=== PATIENT | male | born 1990 | race Caucasian/White ===

== ENCOUNTER 2023-05-01 18:02 | Emergency (ER) | payer OTHER ==
[~2023-05-01] VITALS: Ht 175.3 cm; Wt 83.9 kg
== END 2023-05-01 20:44 | disposition home or self-care (01) ==
LOC: ER 18:02
DX: S63.591A Other specified sprain of right wrist, initial encounter (principal); X50.9XXA Other and unspecified overexertion or strenuous movements or postures, initial encounter; Y93.89 Activity, other specified; Y92.89 Other specified places as the place of occurrence of the external cause; Z88.8 Allergy status to other drugs, medicaments and biological substances

== ENCOUNTER 2023-10-01 22:44 | Emergency (ER) | payer OTHER ==
[~2023-10-01] VITALS: Ht 175.3 cm; Wt 88.5 kg
[2023-10-02] MEDS ORDERED: DICLOFENAC SODI75 MG PO (01:54)
== END 2023-10-02 03:02 | disposition home or self-care (01) ==
LOC: ER 22:44
DX: M94.0 Chondrocostal junction syndrome [Tietze] (principal)

== ENCOUNTER 2024-08-12 23:46 | Emergency (ER) | payer OTHER ==
[~2024-08-12] VITALS: Ht 170.2 cm; Wt 95.3 kg
[~2024-08-12 23:46] MED LIST: DICLOFENAC SODI75 MG PO
[2024-08-13] MEDS ORDERED: KETOROLAC TROMETHAMINE 10 MG TABLET PO STA (04:54)
[2024-08-13] MEDS ORDERED: KETO10TA2 PO (05:01)
== END 2024-08-13 05:49 | disposition home or self-care (01) ==
LOC: ER 23:48
DX: S40.011A Contusion of right shoulder, initial encounter (principal); X58.XXXA Exposure to other specified factors, initial encounter; Y93.89 Activity, other specified; Y92.89 Other specified places as the place of occurrence of the external cause; Y99.9 Unspecified external cause status; Z88.8 Allergy status to other drugs, medicaments and biological substances